=== PATIENT | female | born 1970 | race Caucasian/White ===

== ENCOUNTER 2019-02-05 14:00 | Outpatient (CLI) | payer BC | END 2019-02-05 14:10 | disposition home or self-care (01) | LOC: MRI 14:00 | DX: M54.5 Low back pain (principal) | CPT/HCPCS: 72148 ==

== ENCOUNTER 2022-01-24 15:23 | Outpatient (CLI) | payer BC | END 2022-01-24 15:30 | disposition home or self-care (01) | LOC: LAB 15:23 | PROVIDERS: ATTEND Internal Medicine | DX: Z11.3 Encounter for screening for infections with a predominantly sexual mode of transmission (principal) ==

== ENCOUNTER → 2022-02-28 12:29 | Outpatient (CLI) | payer BC | END | disposition home or self-care (01) | LOC: LAB 12:29 | PROVIDERS: ATTEND Internal Medicine | DX: R19.7 Diarrhea, unspecified (principal) ==

== ENCOUNTER 2023-02-23 10:01 | Outpatient (CLI) | payer BC | END 2023-02-23 10:07 | disposition home or self-care (01) | LOC: SONOGRAMA 10:01 | PROVIDERS: ATTEND Internal Medicine | DX: E87.6 Hypokalemia (principal); R31.9 Hematuria, unspecified ==

== ENCOUNTER 2023-02-23 11:52 | Outpatient (CLI) | payer BC | END 2023-02-23 13:24 | disposition home or self-care (01) | LOC: LAB 11:52 | PROVIDERS: ATTEND Internal Medicine | DX: E06.9 Thyroiditis, unspecified (principal); N39.0 Urinary tract infection, site not specified; E87.6 Hypokalemia ==

== ENCOUNTER 2025-02-17 08:03 | Outpatient (CLI) | payer BC | END 2025-02-17 08:04 | disposition home or self-care (01) | LOC: NUCLEAR 08:03 | PROVIDERS: ATTEND Internal Medicine | DX: M81.0 Age-related osteoporosis without current pathological fracture (principal) ==